=== PATIENT | male | born 1950 | race Hispanic/Latino ===

== ENCOUNTER → 2017-07-12 | Outpatient (CLI) | payer MEDICARE ==
[~2017-07-12] MED LIST: ATENOLOL-CHLOR1 EACH PO; ATENOLOL50 MG PO; OMEPRAZOLE40 MG PO
--- NOTE | 2017-07-12 10:28 | Diagnostic Imaging Report ---
PROCEDURE:X-RAY RIGHT SHOULDER, COMPLETE COMPARISON:None. INDICATIONS:PAIN IN RIGHT SHOULDER FINDINGS: There are no fractures, dislocations, lytic or blastic lesions. The bones are well-mineralized. The soft-tissues are unremarkable. CONCLUSION: No acute radiographic abnormality. Dictated by: Chaparro Stephen M.D. on 07/12/2017 at 10:28 Electronically approved by: Chaparro Stephen M.D. on 07/12/2017 at 10:28
== END ==
LOC: RAD 09:51
PROVIDERS: ATTEND Family Medicine
DX: M25.511 Pain in right shoulder (principal)

== ENCOUNTER → 2017-10-04 | Outpatient (CLI) | payer MEDICARE ==
[~2017-10-04] MED LIST changes: +IOPAMIDOL 370 MG/ML 200 ML INFUS..BTL INJ ONE; +SODIUM CHLORIDE 0.9% 100 ML ONE
[2017-10-04 12:10] LABS: BLOOD UREA NITROGEN 13 mg/dL (7-26); BUN/CREATININE RATIO 18 (6-25); CREATININE, SERUM 0.73 mg/dL (0.72-1.25); EST GLOMERULAR FILTRATION RATE > 60 ML/MIN (60-)
--- NOTE | 2017-10-04 15:20 | Diagnostic Imaging Report ---
EXAM: CTA Chest WITH contrast. DATE: 10/04/2017 11:50 AM INDICATION: COMPARISON: None TECHNIQUE: CT angiogram of the chest was obtained after the administration of IV contrast. Prospective gating was performed. Images reviewed in the axial, coronal, and sagittal planes. 3D reconstructions performed on off-line workstation. IV Contrast: 100 mL Isovue-370. Total DLP: 828 mGy*cm Est. Eff. Dose DLP x 0.015 x size factor mSv (CTDIvol has been reviewed and is below limits set by [facility]). FINDINGS: Lines and Tubes: None. Lower Neck: Please see same day CTA neck. Heart and Great Vessels: The pulmonary artery measure 38 mm. No central pulmonary embolus. Peripheral evaluation limited by motion artifact. Coronary arteries in adequately evaluated secondary to motion. No intracardiac filling defect is identified. Aortic Annulus: 33 mm. Sinus of Valsalva: 43 mm. Ascending Aorta at level of PA: 44 mm. Mid Arch: 33 mm. Proximal Descendin mm. Mid Descendin mm. Distal Descendin mm. Other: There is routine branching of the aortic arch with tortuosity and mild ectasia of the right brachycephalic artery measuring up to 17 mm. Lymph Nodes: Scattered mediastinal lymph nodes, not enlarged by size criteria. Lungs: No pneumothorax or pleural effusion. Trachea and central bronchi are unremarkable. Significant respiratory motion artifact limits pulmonary parenchymal evaluation. Scattered opacities in the mid and lower lungs statistically represent atelectasis with mild air trapping in the lung bases. Evaluation for pulmonary limited. Upper abdomen: Limited evaluation, no acute findings. Bones and Soft Tissues: Degenerative changes spine. IMPRESSION: 1. Moderate motion artifact degrades image quality, limiting evaluation. 2. Ectasia/mild aneurysmal dilatation of the aortic root and ascending aorta measuring 43 mm and 44 mm respectively. 3. Dilated pulmonary trunk at 38 mm suggesting pulmonary hypertension. 4. Tortuous ectatic right brachycephalic artery most prominent at the inferior/right aspect of the thyroid gland. 5. Limited evaluation pulmonary parenchyma as above. Signed by: Dr. Kirill Del Rosario MD on 10/04/2017 3:17 PM
--- NOTE | 2017-10-04 16:09 | Diagnostic Imaging Report ---
Exam: Cervical CTA History: Prominent pulsation in suprasternal notch. Comparison studies:None Technique: Axial images were obtained from the thoracic inlet. Multiplanar and MIP reconstructed images were created from the axial data. Additional multiplanar reformats of the left carotid artery with semi-automated stenosis calculation were performed on a separate workstation by the radiologist. Intravenous contrast: 100 cc of Omnipaque 300. If present, stenosis at the carotid bulbs is calculated utilizing the NASCET method which calculates the degree of stenosis with reference to the normal lumen of the carotid artery distal to the stenosis. Findings: Aortic arch: Patent, no filling defects. Great vessels: There is mild ectasia and tortuosity of the right brachycephalic trunk. Mild nonstenotic hard plaque at the origin of the right brachiocephalic trunk. Common carotid arteries and carotid bulbs: Patent bilaterally. No stenosis at the right cervical carotid bulb. Nonstenotic calcified atherosclerosis at the right ECA origin. Mild calcified and soft plaque at the proximal left bulb do not result in not result in hemodynamically significant stenosis (0% by NACET criteria). Internal carotid arteries: Patent, no abnormalities in the cervical segments. Mild nonstenotic calcified atherosclerosis in the intracranial paraophthalmic segments Vertebral arteries: Patent, no abnormalities. Cervical spine: Mildly degenerated C5-C6 and C6-C7 discs. Moderate bilateral C5-C6 and C6-C7 foraminal stenosis due to uncovertebral arthrosis. Incidental findings: Abnormal left globe with uveal-scleral calcification. A normal left lens is not identified and there are additional punctate calcifications within the anterior and inferior left globe. Finds may be related to previous traumatic, infectious or inflammatory insult. IMPRESSION: 1. Mildly ectatic and tortuous right brachycephalic trunk would account for suprasternal pulsation. 2. No (0%) stenosis at the right carotid bulb. 3. Mild calcified and hard plaque at the left cervical carotid bulb without significant stenosis (0% by NASCET criteria). 4. Abnormal left globe as described. Recommend correlation with ophthalmologic history and exam. Signed by: Dr. Med Hartley M.D. on 10/04/2017 4:05 PM
== END ==
LOC: CT 11:28
PROVIDERS: ATTEND Internal Medicine Cardiovascular Disease
DX: R94.8 Abnormal results of function studies of other organs and systems (principal); R07.9 Chest pain, unspecified; I70.90 Unspecified atherosclerosis
CPT/HCPCS: 36415; 70498; 71275; 82565; 84520; J7050; Q9967

== ENCOUNTER → 2017-11-24 | Outpatient (CLI) | payer MEDICARE ==
[~2017-11-24] MED LIST changes: -IOPAMIDOL 370 MG/ML 200 ML INFUS..BTL INJ ONE; -SODIUM CHLORIDE 0.9% 100 ML ONE
--- NOTE | 2017-11-24 16:10 | Diagnostic Imaging Report ---
PROCEDURE:US RETROPERITONEAL ( KIDNEY ). COMPARISON:None. INDICATIONS:ASYMPTOMATIC MICROSCOPIC HEMATURIA TECHNIQUE: Khan-scale and color sonographic images of the bilateral kidneys and bladder where obtained in transverse and longitudinal planes. FINDINGS: RIGHT KIDNEY: 12.3 cm, cortex 1.6 cm Cysts: None Solid masses: 0.6 x 0.6 x 0.9 cm echogenic lesion in the right midpole without shadowing Stones: None Hydronephrosis: None Echogenicity: Normal LEFT KIDNEY: 12.7 cm, cortex 2.1 cm Cysts: None Solid masses: None Stones: None Hydronephrosis: None Echogenicity: Normal Bladder: Unremarkable Prostate: The prostate measures 2.4 x 1.2 x 1.9 cm CONCLUSION: 1. 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 Recommend CT of the abdomen (renal cortical, within without contrast) for confirmation. 2. Otherwise normal renal ultrasound. Dictated by: Ulises Gamino M.D. on 11/24/2017 at 16:15 Electronically approved by: Ulises Gamino M.D. on 11/24/2017 at 16:15
== END ==
LOC: US 13:19
PROVIDERS: ATTEND Urology
DX: R31.21 Asymptomatic microscopic hematuria (principal)
CPT/HCPCS: 76770

== ENCOUNTER → 2018-06-11 | Outpatient (CLI) | payer OTHER ==
--- NOTE | 2018-06-11 10:24 | Diagnostic Imaging Report ---
EXAM: US ABDOMEN COMPLETE INDICATION: Abdominal pain. COMPARISON: None TECHNIQUE: Transverse and longitudinal hendrix scale and color doppler sonographic images of the upper abdomen were obtained. FINDINGS: LIVER 15 cm in the right midclavicular line. Increased echogenicity of the liver with normal contour, no masses. SPLEEN 9.5 cm in maximum diameter. Normal echogenicity, no masses. GALLBLADDER Mild gallbladder sludge. No gallbladder wall thickening, distension, stone, or pericholecystic fluid. Negative reported sonographic Koch's sign. BILE DUCTS No intra nor extra-hepatic biliary dilation. Common bile duct measures 0.3 cm PANCREAS: Visualized portions are normal. RIGHT KIDNEY: 11.2 cm Echogenicity: Normal Collecting System: No hydronephrosis Stones: None Cyst/Mass: None LEFT KIDNEY: 13.4 cm Echogenicity: Normal Collecting System: No hydronephrosis Stones: None Cyst/Mass: None VESSELS: Aorta: Visualized portions are within normal size limits Inferior Vena Cava: Visualized portions are normal Main Portal Vein: 0.9 cm, normal size with hepatopetal flow. FREE FLUID: None IMPRESSION: Hepatic steatosis. Mild gallbladder sludge without sonographic evidence of cholecystitis. Signed by: Dr. Erlin Carr MD on 06/11/2018 10:20 AM
== END ==
LOC: US 08:54
PROVIDERS: ATTEND Family Medicine
DX: R10.84 Generalized abdominal pain (principal)
CPT/HCPCS: 76700

== ENCOUNTER 2018-07-05 16:53 | Observation (INO) | payer MEDICARE, OTHER ==
[~2018-07-05] VITALS: Ht 182.9 cm; Wt 103.4 kg
--- OUTSIDE RECORDS SUMMARY | 2018-07-05 16:56 | XMS REPORT ---
Author Author [facility] Address Unknown Phone Unavailable Care Team Providers Care Senior Software Architect Name Role Phone TORSTEN HARPER Unavailable Unavailable JUHI NICHOLS Unavailable Unavailable Davonte OVALLE Unavailable Unavailable Problems This patient has no known problems. Allergies, Adverse Reactions, Alerts This patient has no known allergies or adverse reactions. Medications This patient has no known medications. Results Test Description Test Time Test Comments Text Results Atomic Results Result Comments US ABDOMEN COMPLETE 2018-06-11 10:10:00 [place] [address] Patient Name: RORY MEDINA MR #: [id number] : 1950 Age/Sex: 68/M Req #: [id number] Adm Physician: Ordered by: TORSTEN HARPER MD Report #: [id number] Location: Room/Bed: Procedure: [id number] US/US ABDOMEN COMPLETE Exam Date: 06/11/18 Exam Time: 0930 REPORT STATUS: Signed EXAM: US ABDOMEN COMPLETE INDICATION: Abdominal pain. COMPARISON: None TECHNIQUE: Transverse and longitudinal hendrix scale and color doppler sonographic images of the upper abdomen were obtained. FINDINGS: LIVER 15 cm in the right midclavicular line. Increased echogenicity of the liver with normal contour, no masses. SPLEEN 9.5 cm in maximum diameter. Normal echogenicity, no masses. GALLBLADDER Mild gallbladder sludge. No gallbladder wall thickening, distension, stone, or pericholecystic fluid. Negative reported sonographic Koch's sign. BILE DUCTS No intra nor extra-hepatic biliary dilation. Common bile duct measures 0.3 cm PANCREAS: Visualized portions are normal. RIGHT KIDNEY: 11.2 cm Echogenicity: Normal Collecting System: No hydronephrosis Stones: None Cyst/Mass: None LEFT KIDNEY: 13.4 cm Echogenicity: Normal Collecting System: No hydronephrosis Stones: None Cyst/Mass: None VESSELS: Aorta: Visualized portions are within normal size limits Inferior Vena Cava: Visualized portions are normal Main Portal Vein: 0.9 cm, normal size with hepatopetal flow. FREE FLUID: None IMPRESSION: Hepatic steatosis. Mild gallbladder sludge without sonographic evidence of cholecystitis. Signed by: Dr. Sanna Almonte MD on 06/11/2018 10:20 AM Dictated By: SANNA ALMONTE MD 1020 Transcribed By: LUIS on 06/11/18 1020 COPY TO: TORSTEN HARPER MD US RENAL RETROPERITONEAL COMP 2017-11-24 16:15:00 [place] [address] Patient Name: RORY MEDINA MR #: [id number] : 1950 Age/Sex: 67/M Req #: [id number] Adm Physician: Ordered by: JUHI NICHOLS MD Report #: [id number] Location: Room/Bed: Procedure: [id number] US/US RENAL RETROPERITONEAL COMP Exam Date: Exam Time: REPORT STATUS: Signed PROCEDURE: US RETROPERITONEAL ( KIDNEY ). COMPARISON: None. INDICATIONS: ASYMPTOMATIC MICROSCOPIC HEMATURIA TECHNIQUE: Khan-scale and color sonographic images of the bilateral kidneys and bladder where obtained in transverse and longitudinal planes. FINDINGS: RIGHT KIDNEY: 12.3 cm, cortex 1.6 cm Cysts: None Solid masses: 0.6 x 0.6 x 0.9 cm echogenic lesion in the right midpole without shadowing Stones: None Hydronephrosis: None Echogenicity: Normal LEFT KIDNEY: 12.7 cm, cortex 2.1 cm Cysts: None Solid masses: None Stones: None Hydronephrosis: None Echogenicity: Normal Bladder: Unremarkable Prostate: The prostate measures 2.4 x 1.2 x 1.9 cm CONCLUSION: 1. 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 Recommend CT of the abdomen (renal cortical, within without contrast) for confirmation. 2. Otherwise normal renal ultrasound. Dictated by: Rito Gamino M.D. on 11/24/2017 at 16:15 Electronically approved by: Rito Gamino M.D. on 11/24/2017 at 16:15 Dictated By: RITO GAMINO MD 161 Transcribed By: ANMOL on 11/24/17 1615 COPY TO: JUHI NICHOLS MD CTA CHEST [place] [address] Patient Name: RORY MEDINA MR #: [id number] : 1950 Age/Sex: 67/M Req #: [id number] Adm Physician: Ordered by: FILIPE OVALLE MD Report #: [id number] Location: CT Room/Bed: Procedure: [id number] CT/CTA CHEST Exam Date: 10/04/17 Exam Time: 1240 REPORT STATUS: Signed EXAM: CTA Chest WITH contrast. DATE: 10/04/2017 11:50 AM INDICATION: COMPARISON: None TECHNIQUE: CT angiogram of the chest was obtained after the administration of IV contrast. Prospective gating was performed. Images reviewed in the axial, coronal, and sagittal planes. 3D reconstructions performed on off-line workstation. IV Contrast: 100 mL Isovue-370. Total DLP: 828 mGy*cm Est. Eff. Dose DLP x 0.015 x size factor mSv (CTDIvol has been reviewed and is below limits set [facility] FINDINGS: Lines and Tubes: None. Lower Neck: Please see same day CTA neck. Heart and Great Vessels: The pulmonary artery measure 38 mm. No central pulmonary embolus. Peripheral evaluation limited by motion artifact. Coronary arteries in adequately evaluated secondary to motion. No intracardiac filling defect is identified. Aortic Annulus: 33 mm. Sinus of Valsalva: 43 mm. Ascending Aorta at level of PA: 44 mm. Mid Arch: 33 mm. Proximal Descendin mm. Mid Descendin mm. Distal Descendin mm. Other: There is routine branching of the aortic arch with tortuosity and mild ectasia of the right brachycephalic artery measuring up to 17 mm. Lymph Nodes: Scattered mediastinal lymph nodes, not enlarged by size criteria. Lungs: No pneumothorax or pleural effusion. Trachea and central bronchi are unremarkable. Significant respiratory motion artifact limits pulmonary parenchymal evaluation. Scattered opacities in the mid and lower lungs statistically represent atelectasis with mild air trapping in the lung bases. Evaluation for pulmonary limited. Upper abdomen: Limited evaluation, no acute findings. Bones and Soft Tissues: Degenerative changes spine. IMPRESSION: 1. Moderate motion artifact degrades image quality, limiting evaluation. 2. Ectasia/mild aneurysmal dilatation of the aortic root and ascending aorta measuring 43 mm and 44 mm respectively. 3. Dilated pulmonary trunk at 38 mm suggesting pulmonary hypertension. 4. Tortuous ectatic right brachycephalic artery most prominent at the inferior/right aspect of the thyroid gland. 5. Limited evaluation pulmonary parenchyma as above. Signed by: Dr. Kirill Del Rosario MD on 10/04/2017 3:17 PM Dictated By: KIRILL DEL ROSARIO MD [id number] Transcribed By: LUIS on 10/04/17 9397 COPY TO: FILIPE OVALLE MD CTA NECK [facility] [address] [place] [address] Patient Name: RORY MEDINA MR #: [id number] : 1950 Age/Sex: 67/M Req #: [id number] Adm Physician: Ordered by: FILIPE OVALLE MD Report #: [id number] Location: CT Room/Bed: Procedure: [id number] CT/CTA NECK Exam Date: 10/04/17 Exam Time: 1240 REPORT STATUS: Signed Exam: Cervical CTA History: Prominent pulsation in suprasternal notch. Comparison studies:None Technique: Axial images were obtained from the thoracic inlet. Multiplanar and MIP reconstructed images were created from the axial data. Additional multiplanar reformats of the left carotid artery with semi-automated stenosis calculation were performed on a separate workstation by the radiologist. Intravenous contrast: 100 cc of Omnipaque 300. If present, stenosis at the carotid bulbs is calculated utilizing the NASCET method which calculates the degree of stenosis with reference to the normal lumen of the carotid artery distal to the stenosis. Findings: Aortic arch: Patent, no filling defects. Great vessels: There is mild ectasia and tortuosity of the right brachycephalic trunk. Mild nonstenotic hard plaque at the origin of the right brachiocephalic trunk. Common carotid arteries and carotid bulbs: Patent bilaterally. No stenosis at the right cervical carotid bulb. Nonstenotic calcified atherosclerosis at the right ECA origin. Mild calcified and soft plaque at the proximal left bulb do not result in not result in hemodynamically significant stenosis (0% by NACET criteria). Internal carotid arteries: Patent, no abnormalities in the cervical segments. Mild nonstenotic calcified atherosclerosis in the intracranial paraophthalmic segments Vertebral arteries: Patent, no abnormalities. Cervical spine: Mildly degenerated C5-C6 and C6-C7 discs. Moderate bilateral C5-C6 and C6-C7 foraminal stenosis due to uncovertebral arthrosis. Incidental findings: Abnormal left globe with uveal-scleral calcification. A normal left lens is not identified and there are additional punctate calcifications within the anterior and inferior left globe. Finds may be related to previous traumatic, infectious or inflammatory insult. IMPRESSION: 1. Mildly ectatic and tortuous right brachycephalic trunk would account for suprasternal pulsation. 2. No (0%) stenosis at the right carotid bulb. 3. Mild calcified and hard plaque at the left cervical carotid bulb without significant stenosis (0% by NASCET criteria). 4. Abnormal left globe as described. Recommend correlation with ophthalmologic history and exam. Signed by: Dr. Markel Hartley M.D. on 10/04/2017 4:05 PM Dictated By: MARKEL HARTLEY MD 1609 Transcribed By: LUIS on 10/04/17 1605 COPY TO: FILIPE OVALLE MD SHOULDER RIGHT COMPLETE [place] [address] Patient Name: RORY MEDINA MR #: [id number] : 1950 Age/Sex: 67/M Req #: [id number] Adm Physician: Ordered by: TORSTEN HARPER MD Report #: [id number] Location: [facility] Room/Bed: Procedure: [id number] DX/SHOULDER RIGHT COMPLETE Exam Date: 07/12/17 Exam Time: 0950 REPORT STATUS: Signed PROCEDURE: X-RAY RIGHT SHOULDER, COMPLETE COMPARISON: None. INDICATIONS: PAIN IN RIGHT SHOULDER FINDINGS: There are no fractures, dislocations, lytic or blastic lesions. The bones are well- mineralized. The soft-tissues are unremarkable. CONCLUSION: No acute radiographic abnormality. Dictated by: Daphne Pantoja M.D. on 07/12/2017 at 10:28 Electronically approved by: Daphne Pantoja M.D. on 07/12/2017 at 10:28 Dictated By: DAPHNE PANTOJA MD 1028 Transcribed By: ANMOL on 07/12/17 1028 COPY TO: TORSTEN HARPER MD
--- NOTE | 2018-07-05 18:29 | Diagnostic Imaging Report ---
History:Disoriented, lethargic, confused, headache Comparison studies: None Technique: Axial images were obtained from the skull base to the vertex. Coronal and sagittal images reconstructed from the axial data. Dose modulation, iterative reconstruction, and/or weight based adjustment of the mA/kV was utilized to reduce the radiation dose to as low as reasonably achievable. Intravenous contrast: None Findings: Scalp/skull: No abnormalities. Extra-axial spaces: No masses. No fluid collections. Brain sulci: Mildly prominent. Ventricles: Mild compensatory dilatation. No hydrocephalus. Parenchyma: Subtle hypodensities in the supratentorial white matter are small vessel ischemic changes. An age-indeterminate, 1 cm subacute or early chronic lacunar insult is centered in the anterior limb of the right internal capsule. No masses, hemorrhage, acute or chronic cortical vascular insults. Sellar/suprasellar region: No abnormalities. Craniocervical junction: Patent foramen magnum. No Chiari one malformation. Incidental findings: Subtle atherosclerotic calcifications in the carotid siphons and vertebral arteries. Curvilinear calcification in the left sclera, absent lens and punctate calcifications in the anterior chamber. Impression: No acute abnormalities. Chronic findings: 1. Mild generalized volume loss. 2. Mild supratentorial white matter small vessel ischemic changes. 3. Age-indeterminate subacute or chronic lacunar insult in the anterior limb of the right internal capsule. Signed by: Dr. Jah Aguirre M.D. on 07/05/2018 6:26 PM
[2018-07-05 19:20] LABS: BASOPHILS # (AUTO) 0.1 (0.0-0.1); BASOPHILS % 0.8 % (0.0-1.0); EOSINOPHILS # (AUTO) 0.3 (0.0-0.4); EOSINOPHILS % 3.6 % (0.0-6.0); HEMATOCRIT 40.4 % (38.2-49.6); HEMOGLOBIN 13.6 g/dL (14.0-18.0); LYMPHOCYTES # (AUTO) 2.8 (1.0-3.2); LYMPHOCYTES % 39.2 % (18.0-39.1); MEAN CORPUSCULAR HEMOGLOBIN 30.8 pg (28-32); MEAN CORPUSCULAR HGB CONC 33.7 g/dL (31-35); MEAN CORPUSCULAR VOLUME 91.6 fL (81-99); MONOCYTES # (AUTO) 0.7 (0.2-0.8); MONOCYTES % 9.9 % (4.4-11.3); NEUTROPHILS # (AUTO) 3.4 (2.1-6.9); NEUTROPHILS % 46.2 % (38.7-80.0); PLATELET COUNT 175 x10e3/uL (140-360); RED BLOOD COUNT 4.41 x10e6/uL (4.3-5.7); RED CELL DISTRIBUTION WIDTH 14.3 % (11.7-14.4)
--- NOTE | 2018-07-05 19:29 | Diagnostic Imaging Report ---
EXAMINATION: CHEST SINGLE (PORTABLE) INDICATION: ^CHEST PAIN ^[id number] ^1850 ^Y COMPARISON: Chest radiograph 12/18/2015 FINDINGS: AP view TUBES and LINES: None. LUNGS: Lungs are well inflated. Bilateral pulmonary edema. No lobar consolidations. PLEURA: No pleural effusion or pneumothorax. HEART AND MEDIASTINUM: Moderate enlargement of the cardiac silhouette. BONES AND SOFT TISSUES: No acute osseous lesion. Soft tissues are unremarkable. UPPER ABDOMEN: No free air under the diaphragm. IMPRESSION: Cardiomegaly with associated bilateral pulmonary edema. Signed by: Dr. Amparo Reeves M.D. on 07/05/2018 7:25 PM
[2018-07-05 19:33] LABS: INR 0.86; PROTHROMBIN TIME 12.5 seconds (11.9-14.5)
[2018-07-05 19:34] LABS: PARTIAL THROMBOPLASTIN TIME 29.7 seconds (23.8-35.5)
[2018-07-05 19:44] LABS: ALANINE AMINOTRANSFERASE 21 IU/L (0-55); ALBUMIN 3.9 g/dL (3.5-5.0); ALBUMIN/GLOBULIN RATIO 1.2 (0.8-2.0); ALKALINE PHOSPHATASE 54 IU/L (40-150); ANION GAP 10.8 mmol/L (8-16); BLOOD UREA NITROGEN 12 mg/dL (7-26); BUN/CREATININE RATIO 16 (6-25); CALCIUM 9.7 mg/dL (8.4-10.2); CARBON DIOXIDE 31 mmol/L (22-29); CHLORIDE 102 mmol/L (98-107); CREATINE KINASE 97 IU/L (30-200); CREATININE, SERUM 0.76 mg/dL (0.72-1.25); EST GLOMERULAR FILTRATION RATE > 60 ML/MIN (60-); GLUCOSE 86 mg/dL (74-118); POTASSIUM 3.8 mmol/L (3.5-5.1); SODIUM 140 mmol/L (136-145)
[2018-07-05 20:56] LABS: CLARITY,URINE CLEAR (CLEAR); COLOR,URINE YELLOW (YELLOW)
[2018-07-05 20:57] LABS: BILIRUBIN,URINE NEGATIVE (NEGATIVE); KETONES,URINE NEGATIVE (NEGATIVE); LEUKOCYTE ESTERASE ,URINE NEGATIVE (NEGATIVE); NITRITE,URINE NEGATIVE (NEGATIVE); PROTEIN,URINE DIPSTICK NEGATIVE (NEGATIVE); URINE UROBILINOGEN 0.2 mg/dL (0.2 - 1)
[2018-07-05] MEDS ORDERED: SODIUM CHLORIDE 0.9% 1000ML 1,000 ML IV SCH (21:25)
[2018-07-05] MEDS ORDERED: ONDANSETRON HCL INJ 2MG/ML 2ML 2 MG/ML VIAL IV PRN (21:30)
[2018-07-05] MEDS ORDERED: ASPIRIN 81 MG CHEW TAB PO ONE (21:30)
[2018-07-05] MEDS ORDERED: HYDRALAZINE HCL 20 MG/ML VIAL IV PRN (22:00)
[2018-07-05] MEDS ORDERED: PEPCID40 MG PO (22:32)
[2018-07-05] MEDS ORDERED: METOPROLOL SUCC25 MG PO (22:32)
[2018-07-05] MEDS ORDERED: ATORVASTATIN CA40 MG PO (22:32)
[2018-07-05] MEDS ORDERED: TRIAMTERENE-HCTZ1 EA PO (22:34)
[2018-07-05 23:29] VITALS: BP 187/77
[2018-07-06] VITALS (8 sets, daily range): BP systolic 117–194; BP diastolic 57–80
[2018-07-06 05:31] LABS: BASOPHILS # (AUTO) 0.1 (0.0-0.1); BASOPHILS % 0.8 % (0.0-1.0); EOSINOPHILS # (AUTO) 0.3 (0.0-0.4); HEMATOCRIT 39.4 % (38.2-49.6); HEMOGLOBIN 13.1 g/dL (14.0-18.0); LYMPHOCYTES # (AUTO) 2.5 (1.0-3.2); LYMPHOCYTES % 30.6 % (18.0-39.1); MEAN CORPUSCULAR HEMOGLOBIN 30.5 pg (28-32); MEAN CORPUSCULAR HGB CONC 33.2 g/dL (31-35); MEAN CORPUSCULAR VOLUME 91.6 fL (81-99); MONOCYTES # (AUTO) 0.8 (0.2-0.8); NEUTROPHILS # (AUTO) 4.6 (2.1-6.9); NEUTROPHILS % 55.4 % (38.7-80.0); PLATELET COUNT 153 x10e3/uL (140-360); RED CELL DISTRIBUTION WIDTH 14.1 % (11.7-14.4)
[2018-07-06 05:49] LABS: CREATINE KINASE 78 IU/L (30-200)
--- NOTE | 2018-07-06 06:01 | Diagnostic Imaging Report ---
EXAMINATION: CHEST SINGLE (PORTABLE) COMPARISON: Chest x-ray 07/05/2018 INDICATION: Cardiomegaly ^CARDIOMEGLEY DISCUSSION: Frontal view of the chest obtained at 0536 hours. HEART AND MEDIASTINUM: Stable cardiomegaly, mild aortic ectasia. LINES: None. LUNGS: Pulmonary vascular markings are prominent and similar. Mild interstitial and alveolar edema. PLEURA: No pleural effusion or pneumothorax. BONES AND SOFT TISSUES: No focal osseous lesion. The soft tissues are normal. IMPRESSION: Stable vascular congestion and edema. Stable cardiomegaly. Signed by: Dr. Heladio Galdamez MD on 07/06/2018 5:58 AM
[2018-07-06 06:48] LABS: ANION GAP 10.5 mmol/L (8-16); BLOOD UREA NITROGEN 14 mg/dL (7-26); BUN/CREATININE RATIO 20 (6-25); CALCIUM 9.1 mg/dL (8.4-10.2); CARBON DIOXIDE 27 mmol/L (22-29); CHLORIDE 105 mmol/L (98-107); CREATININE, SERUM 0.71 mg/dL (0.72-1.25); EST GLOMERULAR FILTRATION RATE > 60 ML/MIN (60-); GLUCOSE 96 mg/dL (74-118); POTASSIUM 3.5 mmol/L (3.5-5.1); SODIUM 139 mmol/L (136-145)
--- NOTE | 2018-07-06 09:20 | NUR ---
Pt received resting in bed with family at bedside. Alert and oriented x4 but Persian speaking. Oriented to staff and surroundings, encouraged to press call douglass if help needed. Emotional support given. Fall precautions maintained. Will monitor
[2018-07-06 09:56] LABS: CREATINE KINASE MB < 1.00 ng/mL (0-4.3)
[2018-07-06 14:10] LABS: CREATINE KINASE MB 0.6 ng/mL (0-5.0)
--- NOTE | 2018-07-06 14:13 | NUR ---
SOCIAL WORK INITIAL ASSESSMENT Resource Coordinator to bedside to discuss plan of care with patient/family. CM/SW role and care transitions discussed. Anticipated discharge plan discussed along with duration of care. CM/SW discussed patients right to make decisions in care. CM/SW work hours given. Patient lives: IN [facility]BI[facility] HOME Admit/Transfer: VIA ED POA/Emergency contact: DAUGHTER ADAM TELLO [phone] Current/Previous Home Health: NONE PCP/Follow-up Care: LEROY OR ARELY Current/Previous DME: NONE Other Services: NONE Employment Status: RETIRED Areas of Concerns: NONE Referral Needs: NONE Education Needs: NONE IMM/QUEZADA given and signed (if applicable): NA Goal for discharge: RETURN HOME CM/SW left business card at the bedside with contact information. Name and number was also written on the patients whiteboard. Patient verbalized understanding of discussion. CM will follow-up with ongoing discharge and transition of care needs.
[2018-07-06] MEDS ORDERED: GADOBENATE DIMEGLUMINE 1 ML IV ONE (16:06)
[2018-07-06] MEDS ORDERED: SODIUM CHLORIDE 0.9% 50ML 50 ML ONE (16:06)
[2018-07-06] MEDS: HYDRALAZINE HCL 10 MG TAB PO SCH ×2 (17:46→21:42)
--- NOTE | 2018-07-06 18:13 | Diagnostic Imaging Report ---
ADDENDUM #1 The cervical MRA was performed with contrast, 20mL Multihance. The correct brain MRI impression should read as follows: Acute, nonhemorrhagic right internal capsule infarct centered in the genu with some extension to the globus pallidus. The cervical and intracranial MRA impression: No cervical or intracranial arterial stenosis or occlusion or vascular malformation. The images and neuroradiology fellow, Dr Dandre Harrison's report were reviewed with edits are as above by Dr. Shaila Wilhelm, neuroradiology faculty, on 07/06/2018 at 2010 hours. Signed by: Dr. Shaila Wilhelm M.D. on 07/06/2018 8:10 PM ORIGINAL REPORT Exam: Brain MRI, intracranial, and cervical MRA without contrast History: 68-year-old male with abnormal speech and weakness Comparison studies: Head CT dated 07/05/2018 and head/neck CTA on 10/04/2017 Technique: Pre-contrast: Sagittal T2; axial T1-IR, MPGR, DWI, T2 FLAIR. Post-contrast: axial and coronal T1. 2-D [id number] MRA . Intravenous contrast: None Findings: Brain: Scalp: No abnormal signal. No masses. Bone marrow: Normal in signal intensity. Extra-axial: No masses or fluid collections. Brain sulci: Mildly prominent . Ventricles: Normal in size . No hydrocephalus. Parenchyma: Focal area of restricted diffusion centered in the genu of the right internal capsule with a normal extension into the adjacent globus pallidus. There is mild underlying edema with persistent low ADC values. Minimal susceptibility on GRE may represent physiologic calcification, as in the contralateral globus pallidus versus trace microhemorrhage. Chronic lacunar infarcts involving the right basal ganglia and caudate head. Suprasellar region: No abnormalities. Craniocervical junction: No abnormalities. Patent foramen magnum. No Chiari one malformation. Other: Dysmorphic appearance of the left lobe, unchanged. Cervical MRA: Carotid arteries: Patent, no significant abnormality. Vertebral arteries: Patent, no significant abnormality. Intracranial MRA: Internal carotid arteries: Patent, no abnormality. Vertebrobasilar circulation: Patent, no abnormality. Anatomical variants: Acom: Normal Pcom: Normal Vertebral arteries:Codominant IMPRESSION: Brain MRI: Subacute right internal capsule infarct centered in the genu with some extension to the globus pallidus. Chronic findings: 1. Multiple chronic right basal ganglia and caudate head infarcts. 2. Stable dysmorphic left globe Cervical MRA: Normal without significant stenosis. Intracranial MRA: Normal without significant stenosis. This is a preliminary report was provided by the neuroradiology fellow. Attending over read to follow. Signed by: Dandre Harrison MD on 07/06/2018 6:19 PM
--- NOTE | 2018-07-06 19:00 | NUR ---
received report from day nurse. patient is resting comfortably in bed. bed is in lowest position and call douglass is within reach. will continue to monitor patient.
[2018-07-06] MEDS ORDERED: ATORVASTATIN 40 MG TAB PO SCH (21:00)
[2018-07-06] MEDS ORDERED: NON-FORMULARY MEDICATION (Atorvastatin Calcium 40 MG) PO SCH (21:00)
[2018-07-07] VITALS: BP_SYST 139; BP_SYST 140; BP_DIAS 65
--- NOTE | 2018-07-07 07:06 | NUR ---
report given to day nurse. patient is resting in bed. bed is in lowest position and call douglass is within reach. will continue to monitor patient.
[2018-07-07 08:01] VITALS: BP 173/77
[2018-07-07] MEDS ORDERED: PANTOPRAZOLE SOD 40 MG TABEC PO SCH (09:00)
[2018-07-07] MEDS ORDERED: TRIAMTERENE/HCTZ 37.5-25 MG TAB PO SCH (09:00)
[2018-07-07] MEDS: HYDRALAZINE HCL 10 MG TAB PO SCH ×2 (10:13→15:17)
[2018-07-07 10:31] VITALS: BP 173/77
[2018-07-07 11:47] VITALS: BP 135/62
--- NOTE | 2018-07-07 14:41 | NUR ---
CALLED [facility] REGARDING DISCHARGE, DR. CARPIO SAID, "I WILL SEE HIM IN ABOUT AN HOUR, WAIT UNTIL I SEE HIM."
--- NOTE | 2018-07-07 14:47 | NUR ---
CALLED [phone],PRESSED 2# INSTRUCTED FOR VOICE MAIL FOR ELVIN HENRY, LEFT MESSAGE WITH CALLBACK NUMBER TO CALL BACK IF OKAY TO DISCHARGE PATIENT.
[2018-07-07 15:18] VITALS: BP 149/68
--- NOTE | 2018-07-08 01:55 | Consultation ---
DATE OF CONSULTATION: 07/07/2018 Cardiology Consultation CONSULTING PHYSICIAN: Leon Hughes MD, Interventional Cardiology REASON FOR CONSULTATION: Stroke and bradycardia. HISTORY OF PRESENT ILLNESS: Mr. Taylor is a 68-year-old pleasant man with hypertension, dyslipidemia, who presents via the Emergency Department with complaints of confusion as noted by family members. He was noted to have on an evaluation by imaging studies subacute CVA of internal capsule and lenticular nuclear, and other old stroke areas. His confusion has resolved. He is currently asymptomatic. When initially arrived, his heart rate was in the 30s to 40s, sinus bradycardia in the setting of beta asa, which has been discontinued since his heart rate has improved to the 50s to 60s today. He has no chest pain or shortness of breath. Denies any lightheadedness or syncope. He denies any shortness of breath. REVIEW OF SYSTEMS: A 12 systems review is negative except for as noted above. PAST MEDICAL HISTORY: As per HPI. SOCIAL HISTORY: Negative x3. FAMILY HISTORY: Noncontributory. PHYSICAL EXAMINATION: VITAL SIGNS: Temperature 98.1, heart rate 60, blood pressure 149/68, O2 saturation 94%. GENERAL: No acute distress. Alert and active. NECK: No JVD. CHEST: Clear to auscultation. CARDIOVASCULAR: Regular rate and rhythm. Normal S1 and S2. No S3. No S4. No murmurs. No rubs. ABDOMEN: Soft, nontender, nondistended. EXTREMITIES: No cyanosis, clubbing, or edema. LABORATORY DATA: Studies reviewed, including MRI and MRA. MRI findings as described above. MRA with no evidence of intracerebral or neck significant arterial stenosis by MRA. Studies reviewed, creatinine 0.7, potassium 3.5, bicarbonate 27, sodium 139, chloride 105, BUN 14, glucose 96, white blood cells 8.2, hemoglobin 13.1, platelets 153. INR is 3.8, AST 23, ALT 21, total bilirubin 0.4. EKG with marked sinus bradycardia, nonspecific repolarization abnormalities. CARDIOVASCULAR MEDICATIONS: Reviewed, on triamterene/hydrochlorothiazide 1 capsule daily, hydralazine 25 mg t.i.d., atorvastatin 40 mg at bedtime. ASSESSMENT: 1. Subacute stroke and previous old strokes, noted on MRI. 2. Confusion, likely related to the above. 3. Hypertension. 4. Dyslipidemia. 5. Sinus bradycardia, suspect related to beta asa use. RECOMMENDATIONS: 1. Start clopidogrel 75 mg daily in setting of subacute stroke. 2. Uptitrate statin to 80 mg atorvastatin. 3. Gradual titration of antihypertensives, avoiding chronotropic negative medications for now. 4. Outpatient video presentation operator to exclude tachybrady syndrome with a component of atrial fibrillation or atrial flutter, however, stroke pattern most consistent with hypertensive etiology. Awaiting Neurology evaluation to confirm these concerns. 5. Left ventricular hypertrophy and preserved left ventricular systolic function on echocardiogram with no significant valvular abnormalities. Discussed findings with the patient. MD LANIE Brown/MODRip /[id number] MTDD
--- NOTE | 2018-07-08 02:46 | Discharge Summary ---
HISTORY: The patient is 68-year-old male with past medical history only positive for hypertension. Apparently, he came here because of weakness. Incidentally, he was found to have an evidence of an old subacute right CVA with no evidence of any neurologic deficit. He was seen by Dr. Hess, Neurology. MRI on the [place] and the carotid arteries did not show any stenosis. Essentially, the cervical MRI showed patent, no significant abnormality. Vertebral artery is patent, no significant abnormality. Intracranial MRI shows it was patent. No significant abnormality. Vertebrobasilar circulation is also patent. So, . So, the patient and family want to go home today. If okay with Dr. Hess of Neurology and Dr. Hughes of Cardiology, the patient can go home today. I told the patient he needs to start taking at least a baby aspirin 81 mg daily plus Lipitor 40 mg daily. He is also on hydralazine 10 mg three times a day. So, the patient is going to go home today if okay with the consultants. PHYSICAL EXAMINATION: HEART: Showed regular rhythm. No murmur or added sound. LUNGS: Clear bilaterally. ABDOMEN: Soft. EXTREMITIES: Show no evidence of cyanosis, edema, or trauma. EKG showed normal sinus bradycardia when he came, but no evidence of any ST-segment elevation or depression or any significant arrhythmia. FINAL IMPRESSION: 1. Episode of weakness. 2. Old subacute right ischemic cerebrovascular accident. 3. Uncontrolled hypertension. 4. Obesity. PLAN OF TREATMENT: The patient is going to be discharged on aspirin 81 mg daily and hydralazine 10 mg three times a day. Follow on triamterene one tablet daily. The patient is going to follow up with Dr. Hess and Dr. Hughes in a week. Discharge only if okay with Dr. Hughes, bowling ball marker and Dr. Hess, neurologist. The patient is able to walk by himself with no problem. MD SRINIVASA Talbert/ALEA /[id number]
== END 2018-07-07 18:41 | disposition home or self-care (01) ==
LOC: ER 16:53 → ERHOLD 21:39 → IMCU 22:59
DX: R53.1 Weakness (principal); I10 Essential (primary) hypertension; Z86.73 Personal history of transient ischemic attack (TIA), and cerebral infarction without residual deficits; E78.5 Hyperlipidemia, unspecified; R00.1 Bradycardia, unspecified; E66.9 Obesity, unspecified; Z87.891 Personal history of nicotine dependence; Z83.3 Family history of diabetes mellitus; Z82.49 Family history of ischemic heart disease and other diseases of the circulatory system; Z68.30 Body mass index [BMI] 30.0-30.9, adult
CPT/HCPCS: 36415 ×2; 70450; 70544; 70549; 70551; 71045 ×2; 80048; 80053; 81001; 82550 ×2; 82553 ×2; 83880; 84484 ×2; 85025 ×2; 85610; 85730; 93005 ×2; 93306; 97139; 99284; A9577; G0378 ×3; J0360; S0164

== ENCOUNTER 2018-07-10 18:32 | Observation (INO) | payer MEDICARE, OTHER ==
[~2018-07-10] VITALS: Ht 182.9 cm; Wt 102.5 kg
[~2018-07-10 18:32] MED LIST changes: +ATORVASTATIN CA40 MG PO; +METOPROLOL SUCC25 MG PO; +PEPCID40 MG PO; +TRIAMTERENE-HCTZ1 EA PO
--- NOTE | 2018-07-10 19:42 | Diagnostic Imaging Report ---
EXAMINATION: CHEST SINGLE (PORTABLE) INDICATION: ^NEURO CHANGES COMPARISON: Chest x-ray 07/06/2018 FINDINGS: AP view TUBES and LINES: None. LUNGS: Lungs are well inflated. There are bibasilar atelectasis. There is perihilar interstitial opacities, consistent with interstitial edema. PLEURA: No pleural effusion or pneumothorax. HEART AND MEDIASTINUM: Cardiac size is moderately enlarged. There are atherosclerotic calcifications within the aorta. BONES AND SOFT TISSUES: No acute osseous lesion. Soft tissues are unremarkable. UPPER ABDOMEN: No free air under the diaphragm. IMPRESSION: Worsening interstitial edema. Signed by: Dr. Wicho Velasquez M.D. on 07/10/2018 7:38 PM
--- NOTE | 2018-07-10 19:47 | Diagnostic Imaging Report ---
EXAMINATION: Head CT without contrast. HISTORY:Headache, weakness, history of recent CVA. COMPARISON:MRI brain from 07/06/[address] head from 07/05/2018. TECHNIQUE: Multidetector axial images were obtained from the foramen magnum to the vertex without contrast. The images were reconstructed using brain and bone algorithms. Thin section brain images were reformatted into coronal and sagittal planes. Dose modulation, iterative reconstruction, and/or weight based adjustment of the mA/kV was utilized to reduce the radiation dose to as low as reasonably achievable. Intravenous contrast: None IMAGE QUALITY: Acceptable. FINDINGS: Skull/scalp: No lytic or blastic. lesions. No surgical changes. Parenchyma: Focal hypodensity centered in the general/anterior limb of right internal capsule that extends to lateral margin of right caudate head and anterior aspect of right lentiform nucleus represents evolving subacute vascular insult. No discrete hemorrhagic transformation. Nonspecific bilateral frontoparietal patchy white matter hypodensity are likely related to small vessel ischemic changes. No acute hemorrhage, mass or acute major vascular territorial infarct. Arteries: No density suggestive of thrombosis. Mild atherosclerotic calcification in bilateral carotid siphon. Dural sinuses: No abnormal density suggestive of thrombosis. Ventricles: No hydrocephalus or displacement. Extra-axial spaces: No abnormal density. Brain volume: Normal for age. Craniocervical junction: No mass, Chiari malformation, or basilar invagination. Sella: No mass. Paranasal/mastoid sinuses: Imaged portions unremarkable. IMPRESSION: 1. Evolving subacute vascular insult in right striato-capsular region. No acute hemorrhage. 2. Mild supratentorial white matter microvascular ischemic changes. Signed by: Dr. Jossy Humphrey M.D. on 07/10/2018 7:44 PM
[2018-07-10 21:25] LABS: BASOPHILS # (AUTO) 0.1 (0.0-0.1); BASOPHILS % 0.4 % (0.0-1.0); EOSINOPHILS # (AUTO) 0.1 (0.0-0.4); EOSINOPHILS % 0.5 % (0.0-6.0); HEMATOCRIT 43.4 % (38.2-49.6); HEMOGLOBIN 14.5 g/dL (14.0-18.0); LYMPHOCYTES % 13.4 % (18.0-39.1); MEAN CORPUSCULAR HEMOGLOBIN 30.4 pg (28-32); MEAN CORPUSCULAR HGB CONC 33.4 g/dL (31-35); MONOCYTES # (AUTO) 1.6 (0.2-0.8); MONOCYTES % 10.5 % (4.4-11.3); NEUTROPHILS # (AUTO) 11.1 (2.1-6.9); NEUTROPHILS % 74.7 % (38.7-80.0); PLATELET COUNT 192 x10e3/uL (140-360); RED BLOOD COUNT 4.77 x10e6/uL (4.3-5.7)
[2018-07-10 21:33] LABS: INR 0.92; PROTHROMBIN TIME 12.9 seconds (11.9-14.5)
[2018-07-10 21:34] LABS: PARTIAL THROMBOPLASTIN TIME 33.2 seconds (23.8-35.5)
[2018-07-10 21:48] LABS: ALANINE AMINOTRANSFERASE 21 IU/L (0-55); ALBUMIN 4.1 g/dL (3.5-5.0); ALBUMIN/GLOBULIN RATIO 0.9 (0.8-2.0); ALKALINE PHOSPHATASE 62 IU/L (40-150); ANION GAP 15.3 mmol/L (8-16); BLOOD UREA NITROGEN 15 mg/dL (7-26); BUN/CREATININE RATIO 17 (6-25); CALCIUM 10.3 mg/dL (8.4-10.2); CARBON DIOXIDE 28 mmol/L (22-29); CHLORIDE 97 mmol/L (98-107); CREATINE KINASE 127 IU/L (30-200); CREATININE, SERUM 0.89 mg/dL (0.72-1.25); EST GLOMERULAR FILTRATION RATE > 60 ML/MIN (60-); GLUCOSE 121 mg/dL (74-118); POTASSIUM 4.3 mmol/L (3.5-5.1); SODIUM 136 mmol/L (136-145)
[2018-07-10 21:52] LABS: B-TYPE NATRIURETIC PEPTIDE2 48.6 pg/mL (0-100)
[2018-07-10] MEDS ORDERED: IBUPROFEN 600 MG TAB PO STA (22:25)
[2018-07-10] MEDS ORDERED: METOCLOPRAMIDE10 MG PO (22:28)
[2018-07-10] MEDS ORDERED: METOPROLOL SUCC25 MG PO (22:28)
[2018-07-10] MEDS ORDERED: CLOPIDOGREL75 MG PO (22:28)
[2018-07-10] MEDS ORDERED: AMLODIPINE BESY10 MG PO (22:28)
[2018-07-10] MEDS ORDERED: ATORVASTATIN CA80 MG PO (22:28)
[2018-07-10] MEDS ORDERED: HYDRALAZINE HCL10 MG PO (22:28)
[2018-07-10] MEDS ORDERED: IBUPROFEN 400 MG TAB ONE (22:33)
--- NOTE | 2018-07-10 22:37 | NUR ---
dr simpson aware of vs, medicated per orders. pt awake alert skin w/d resp nonlab. nad noted.
[2018-07-10] MEDS ORDERED: VANCOMYCIN 1GM/NS 250 ML 250 ML IV STA (22:53)
[2018-07-10] MEDS ORDERED: PIPER-TAZ 3.375 GM 50 ML IV STA (22:53)
[2018-07-10 23:25] LABS: CLARITY,URINE CLEAR (CLEAR); COLOR,URINE YELLOW (YELLOW)
[2018-07-10 23:26] LABS: BILIRUBIN,URINE NEGATIVE (NEGATIVE); KETONES,URINE NEGATIVE (NEGATIVE); LEUKOCYTE ESTERASE ,URINE NEGATIVE (NEGATIVE); NITRITE,URINE NEGATIVE (NEGATIVE); PROTEIN,URINE DIPSTICK NEGATIVE (NEGATIVE); URINE UROBILINOGEN 1 mg/dL (0.2 - 1)
[2018-07-10 23:37] LABS: BACTERIA,URINE RARE /HPF; EPITHELIAL CELLS,URINE RARE /LPF; RBC,URINE >50 /HPF (0-5); WBC,URINE (MAN) 0-5 /HPF (0-5)
--- NOTE | 2018-07-11 00:10 | NUR ---
pt reports feels better after medications, awake alert skin w/d resp nonlab. nad noted. family at bedside
[2018-07-11] MEDS ORDERED: IBUPROFEN 400 MG TAB PO PRN (00:15)
[2018-07-11 01:54] LABS: FREE THYROXINE INDEX 2.662 (1.4-3.8); THYROID STIMULATING HORMONE 1.021 uIU/mL (0.350-4.940)
[2018-07-11] MEDS: ALBUTEROL SULF 0.083% NEB SOLN 3 ML NEB NEB SCH ×7 (02:58→23:00)
[2018-07-11] MEDS: SODIUM CHLORIDE 0.9% 1000ML 1,000 ML IV SCH ×4 (03:40→22:13)
[2018-07-11] MEDS: PIPER-TAZ 3.375 GM 50 ML IV SCH ×3 (05:57→18:00)
[2018-07-11] MEDS: IPRATROPIUM BROMIDE 0.02% 2.5 ML NEB NEB SCH ×3 (06:51→19:55)
--- NOTE | 2018-07-11 07:00 | NUR ---
REPORT TO FELIBERTO BENAVIDEZ
--- NOTE | 2018-07-11 09:08 | NUR ---
PER DR Nash WANG ORDER TYLENOL #3 1 TAB PO Q6H PRN PAIN
[2018-07-11] MEDS: ACETAMINOPHEN/CODEINE 300MG - 30MG TAB PO PRN ×2 (09:25→22:15)
[2018-07-11] MEDS: VANCOMYCIN HCL 1GM/NS 250 ML BAG IV SCH ×2 (11:06→22:13)
[2018-07-11] MEDS ORDERED: ONDANSETRON HCL INJ 2MG/ML 2ML 2 MG/ML VIAL IV PRN (11:30)
--- NOTE | 2018-07-11 12:05 | NUR ---
Received patient via wheelchair from ER. Accompanied by and daughter. AAOX4 to time, person, place, situation. Respirations even and unlabored. Oriented patient and family to room. Instructed to use call light for assistance. Voiced understanding.
[2018-07-11 12:10] VITALS: BP 141/65
[2018-07-11 12:30] VITALS: BP 141/65
[2018-07-11 12:54] VITALS: BP 141/65
--- NOTE | 2018-07-11 14:00 | NUR ---
paged to notify of admission and review medications. Awaiting for call back
[2018-07-11 16:44] VITALS: BP 123/58
--- NOTE | 2018-07-11 18:00 | NUR ---
Patient aware of sputum culture order. States "Right now I don't have productive cough"
--- NOTE | 2018-07-11 18:40 | NUR ---
Repaged to review home medications. Awaiting for call back
--- NOTE | 2018-07-11 18:48 | NUR ---
Resting in bed, at bedside. No s/s of acute distress noted. Report to be given to oncoming nurse.
--- NOTE | 2018-07-11 19:05 | NUR ---
Patient visited in room during nursing rounds. Patient alert and oriented x3. [place] speaking and understand little citizen of [place]. Patient ambulatory in room prn. Family at bedside visiting. Patient on IVF (NS @ 125ml/hr) and scheduled IV antibiotics. Call douglass within reach. Will monitor pt closely.
[2018-07-11 20:00] VITALS: BP 143/65
[2018-07-11] MEDS: ATORVASTATIN 40 MG TAB PO SCH (20:40)
[2018-07-11] MEDS: HYDRALAZINE HCL 10 MG TAB PO SCH (20:43)
[2018-07-11] MEDS ORDERED: NON-FORMULARY MEDICATION (Atorvastatin Calcium 80 MG) PO SCH (21:00)
[2018-07-11] MEDS ORDERED: NON-FORMULARY MEDICATION (Famotidine (Pepcid) 40 MG) PO SCH (21:00)
[2018-07-12] VITALS (8 sets, daily range): BP systolic 117–150; BP diastolic 56–69
[2018-07-12] MEDS: ALBUTEROL SULF 0.083% NEB SOLN 3 ML NEB NEB SCH ×6 (00:22→19:10)
[2018-07-12] MEDS: PIPER-TAZ 3.375 GM 50 ML IV SCH ×4 (00:45→18:40)
[2018-07-12] MEDS: IPRATROPIUM BROMIDE 0.02% 2.5 ML NEB NEB SCH ×4 (01:00→19:10)
[2018-07-12 05:59] LABS: BASOPHILS # (AUTO) 0.1 (0.0-0.1); BASOPHILS % 0.5 % (0.0-1.0); EOSINOPHILS # (AUTO) 0.3 (0.0-0.4); EOSINOPHILS % 2.6 % (0.0-6.0); HEMATOCRIT 35.2 % (38.2-49.6); HEMOGLOBIN 11.5 g/dL (14.0-18.0); LYMPHOCYTES % 27.5 % (18.0-39.1); MEAN CORPUSCULAR HEMOGLOBIN 30.7 pg (28-32); MEAN CORPUSCULAR HGB CONC 32.7 g/dL (31-35); MONOCYTES # (AUTO) 1.4 (0.2-0.8); MONOCYTES % 12.6 % (4.4-11.3); NEUTROPHILS # (AUTO) 6.2 (2.1-6.9); NEUTROPHILS % 56.4 % (38.7-80.0); PLATELET COUNT 143 x10e3/uL (140-360); RED BLOOD COUNT 3.74 x10e6/uL (4.3-5.7); RED CELL DISTRIBUTION WIDTH 14.2 % (11.7-14.4)
[2018-07-12 06:03] LABS: MEAN CORPUSCULAR VOLUME 94.1 fL (81-99)
[2018-07-12] MEDS: FAMOTIDINE 20 MG TAB PO SCH ×4 (06:17→21:31)
[2018-07-12] MEDS: HYDRALAZINE HCL 10 MG TAB PO SCH ×3 (06:17→21:32)
[2018-07-12 06:28] LABS: ANION GAP 9.8 mmol/L (8-16); BLOOD UREA NITROGEN 11 mg/dL (7-26); BUN/CREATININE RATIO 15 (6-25); CALCIUM 8.6 mg/dL (8.4-10.2); CARBON DIOXIDE 27 mmol/L (22-29); CHLORIDE 103 mmol/L (98-107); CREATININE, SERUM 0.74 mg/dL (0.72-1.25); EST GLOMERULAR FILTRATION RATE > 60 ML/MIN (60-); GLUCOSE 100 mg/dL (74-118); POTASSIUM 3.8 mmol/L (3.5-5.1); SODIUM 136 mmol/L (136-145)
--- NOTE | 2018-07-12 06:42 | Diagnostic Imaging Report ---
EXAMINATION: CHEST SINGLE (PORTABLE) INDICATION: PNEUMONIA COMPARISON: Chest x-ray 07/10/2018 FINDINGS: AP view TUBES and LINES: None. LUNGS: Lungs are well inflated. There are bibasilar atelectasis. There is perihilar interstitial opacities, consistent with interstitial edema. PLEURA: No pleural effusion or pneumothorax. HEART AND MEDIASTINUM: Cardiac size is moderately enlarged. There are atherosclerotic calcifications within the aorta. BONES AND SOFT TISSUES: No acute osseous lesion. Soft tissues are unremarkable. UPPER ABDOMEN: No free air under the diaphragm. IMPRESSION: Stable interstitial edema. Signed by: DR. Naseem Orozco MD on 07/12/2018 6:39 AM
--- NOTE | 2018-07-12 07:05 | NUR ---
Received patient mid fowlers position, side rails upx2, call light within reach, and daughter at bedside. Resting with eyes closed. Arousable to verbal stimuli. Respirations even and unlabored. Will continue to monitor.
[2018-07-12] MEDS: METOCLOPRAMIDE HCL 10 MG TAB PO SCH ×2 (08:47→16:57)
[2018-07-12] MEDS: SODIUM CHLORIDE 0.9% 1000ML 1,000 ML IV SCH ×2 (08:47→16:57)
[2018-07-12] MEDS: CLOPIDOGREL BISULFATE 75 MG TAB PO SCH (08:47)
[2018-07-12] MEDS: TRIAMTERENE/HCTZ 37.5-25 MG TAB PO SCH (08:47)
[2018-07-12] MEDS: AMLODIPINE BESYLATE 10 MG TAB PO SCH (08:47)
[2018-07-12] MEDS: VANCOMYCIN HCL 1GM/NS 250 ML BAG IV SCH ×2 (12:00→22:44)
--- NOTE | 2018-07-12 19:05 | NUR ---
Patient visited in room during nursing rounds. Patient alert and oriented x3. [place] speaking and understand little bhutanese. Patient ambulatory in room prn. Family at bedside visiting. Patient on IVF (NS @ 125ml/hr) and scheduled IV antibiotics. Call douglass within reach. Will monitor pt closely.
--- NOTE | 2018-07-12 19:19 | NUR ---
Report given to oncoming nurse of patient's status. NO s/s of acute distress noted.
--- NOTE | 2018-07-12 19:58 | NUR ---
Called and spoke with Dr. Solis (cardio) regarding pt being on IVF (NS at 125ml/hr) and at same time with possible CHF condition. Dr. Solis ordered to discontinue IVF.
[2018-07-12] MEDS: ATORVASTATIN 40 MG TAB PO SCH (21:31)
[2018-07-13] MEDS: IPRATROPIUM BROMIDE 0.02% 2.5 ML NEB NEB SCH ×2 (00:22→06:28)
[2018-07-13] MEDS: PIPER-TAZ 3.375 GM 50 ML IV SCH ×2 (00:47→06:24)
[2018-07-13 01:33] VITALS: BP 153/71
[2018-07-13] MEDS: ACETAMINOPHEN/CODEINE 300MG - 30MG TAB PO PRN (02:50)
[2018-07-13 04:00] VITALS: BP 150/69
--- NOTE | 2018-07-13 04:14 | Consultation ---
DATE OF CONSULTATION: 07/12/2018 Cardiology Consultation REFERRING PHYSICIAN: Gracy Jason M.D., Internal Medicine CONSULTING PHYSICIAN: Leon Hughes MD, Interventional Cardiology REASON FOR CONSULTATION: Management of cardiovascular disease. HISTORY OF PRESENT ILLNESS: Mr. Ike Taylor is a pleasant 68-year-old man with a history of hypertension, recent stroke, dyslipidemia, morbid obesity, who presents to [facility] following an event of altered mental status in the setting of febrile illness of unclear etiology. He was admitted and after cultures were drawn, initiated on vancomycin and Zosyn. He was also hydrated. Today, he has resolved a confusion spell according to the patient as well as family members. He denies any chest pain or shortness of breath. He does elicit some coughing with green productive sputum. He denies any dysuria, abdominal discomfort, nausea, vomiting, or diarrhea. He denies any new episodes of weakness, numbness, changes in speech, vision, or gait. REVIEW OF SYSTEMS: A 12 systems review is negative, except for as noted above. ALLERGIES: NO KNOWN DRUG ALLERGIES. PAST MEDICAL HISTORY: As per HPI. SOCIAL HISTORY: No active smoking, alcohol, or drugs. FAMILY HISTORY: Noncontributory. PHYSICAL EXAMINATION: GENERAL: No acute distress. Alert and active. NECK: No JVD. No carotid bruits. CHEST: Clear to auscultation. CARDIOVASCULAR: Regular rate and rhythm. Normal S1 and S2. No S3 or S4. Systolic ejection murmur 1/6. ABDOMEN: Soft, nontender. EXTREMITIES: No edema. Warm distal extremities. CARDIOVASCULAR MEDICATIONS: Reviewed. Amlodipine 10 mg daily, clopidogrel 75 mg daily, atorvastatin 80 mg at bedtime, hydralazine 10 mg q.8 hours. LABORATORY DATA: Studies reviewed. Sodium 136, potassium 3.8, chloride 103, bicarbonate 27, hemoglobin 11.5, platelets 143. INR 0.9. AST 22, ALT 21, alkaline phosphatase 62, total bilirubin 0.8. ASSESSMENT: 1. Febrile illness of unclear etiology, possible acute respiratory illness. 2. Confusion/delirium, improved in the setting of recent cerebrovascular accident. 3. Hypertension. 4. Dyslipidemia. 5. Morbid obesity. RECOMMENDATIONS: 1. Agree with current cardiovascular medications. We recently adjusted antihypertensives in office. We will adjust further according to readings while in-house. 2. Continue high potency statin therapy in light of a recent stroke in addition to the Clopidogrel. 3. Await cultures- on broad-spectrum coverage for now, await results. Thank you, Dr. Jason, for the opportunity to participate in the care of Mr. Taylor. MD LANIE Brown/ALEA /[id number] MTDD
[2018-07-13 05:12] LABS: BASOPHILS # (AUTO) 0.1 (0.0-0.1); BASOPHILS % 0.5 % (0.0-1.0); EOSINOPHILS # (AUTO) 0.4 (0.0-0.4); EOSINOPHILS % 3.5 % (0.0-6.0); HEMATOCRIT 37.2 % (38.2-49.6); HEMOGLOBIN 12.1 g/dL (14.0-18.0); LYMPHOCYTES # (AUTO) 2.7 (1.0-3.2); MEAN CORPUSCULAR HEMOGLOBIN 30.2 pg (28-32); MEAN CORPUSCULAR HGB CONC 32.5 g/dL (31-35); MEAN CORPUSCULAR VOLUME 92.8 fL (81-99); MONOCYTES % 9.6 % (4.4-11.3); NEUTROPHILS # (AUTO) 5.9 (2.1-6.9); NEUTROPHILS % 59.1 % (38.7-80.0); PLATELET COUNT 178 x10e3/uL (140-360); RED BLOOD COUNT 4.01 x10e6/uL (4.3-5.7)
[2018-07-13 05:43] LABS: ANION GAP 12.8 mmol/L (8-16); BLOOD UREA NITROGEN 9 mg/dL (7-26); BUN/CREATININE RATIO 12 (6-25); CALCIUM 9.1 mg/dL (8.4-10.2); CARBON DIOXIDE 26 mmol/L (22-29); CHLORIDE 104 mmol/L (98-107); CREATININE, SERUM 0.73 mg/dL (0.72-1.25); EST GLOMERULAR FILTRATION RATE > 60 ML/MIN (60-); GLUCOSE 94 mg/dL (74-118); POTASSIUM 3.8 mmol/L (3.5-5.1); SODIUM 139 mmol/L (136-145)
[2018-07-13] MEDS: HYDRALAZINE HCL 10 MG TAB PO SCH (06:24)
[2018-07-13] MEDS: ALBUTEROL SULF 0.083% NEB SOLN 3 ML NEB NEB SCH ×2 (06:28→11:00)
--- NOTE | 2018-07-13 07:12 | NUR ---
Patient is resting in bed in NAD. He denies any pain or SOB at this time. Spouse and daughter at the bedside. POC discussed. Patient and family instructed to call for assistance as needed and verbalized understanding. Bed in lowest position, locked and call douglass within reach.
[2018-07-13 08:00] VITALS: BP 150/69
[2018-07-13 08:18] VITALS: BP 127/61
[2018-07-13 08:19] VITALS: BP 137/60
[2018-07-13] MEDS ORDERED: IBUPROFEN 400 MG TAB PO PRN (09:00)
--- NOTE | 2018-07-13 09:12 | NUR ---
IMM letter delivered and explained to pt and his family at bedside. They verbalized understanding. Signed copy placed in chart. [place] copy provided to pt.
[2018-07-13] MEDS: TRIAMTERENE/HCTZ 37.5-25 MG TAB PO SCH (09:18)
[2018-07-13] MEDS: CLOPIDOGREL BISULFATE 75 MG TAB PO SCH (09:19)
[2018-07-13] MEDS: AMLODIPINE BESYLATE 10 MG TAB PO SCH (09:19)
[2018-07-13] MEDS: FAMOTIDINE 20 MG TAB PO SCH (09:19)
[2018-07-13] MEDS: METOCLOPRAMIDE HCL 10 MG TAB PO SCH (09:19)
[2018-07-13 12:03] VITALS: BP 135/64
--- NOTE | 2018-07-13 12:21 | NUR ---
Status changed to observation. Spoke to pt and family at bedside. Explained status change. They verbalized understanding. QUEZADA letter signed and filed in chart. Copy to pt.
[2018-07-13] MEDS ORDERED: LEVAQUIN500 MG PO (12:46)
--- NOTE | 2018-07-13 13:50 | NUR ---
Patient discharged home with written instructions and prescription. Patient, spouse and daughter verbalized understanding. IV dc'd, cath intact and small dressing applied.
--- NOTE | 2018-07-14 13:20 | Progress Note ---
DATE: 07/13/2018 Cardiology Progress Note SUBJECTIVE: Again, had episodes of confusion overnight, which he attributes to the use of inhaler- albuterol, which he has related to these episodes of confusion. Denies chest pain or shortness of breath. Has otherwise no new complaints. OBJECTIVE: VITAL SIGNS: Temperature 97.6, heart rate 63, blood pressure 137/60, respiratory rate 20, O2 saturation 96%. GENERAL: No acute distress, alert. NECK: No JVD. CHEST: Clear to auscultation. CARDIOVASCULAR: Regular rate and rhythm. Normal S1 and S2. No S3, no S4. ABDOMEN: Soft. EXTREMITIES: Trace edema. MEDICATIONS: Cardiovascular medications reviewed. Clopidogrel 75 mg daily, atorvastatin 80 mg at bedtime, triamterene/hydrochlorothiazide 37.5/25 daily. LABORATORY DATA: Sodium 139, potassium 3.8, chloride 104, bicarbonate 26, BUN 9, creatinine 0.7, glucose 94. White blood cells 9.9, hemoglobin 12.1, platelets 178. INR 3.9. AST 22, ALT 21. ASSESSMENT: 1. Recent cerebrovascular accident. 2. Episodes of bradycardia while on beta-asa, currently resolved following beta-asa discontinuation. 3. Hypertension. 4. Dyslipidemia. 5. Fever of unclear etiology, undergoing workup and broad-spectrum antibiotic coverage with vancomycin and Zosyn. 6. Episodes of delirium. RECOMMENDATIONS: 1. Continue current cardiovascular medications. 2. Continue telemetry monitoring while in-house. 3. Await culture results. MD LANIE Brown/ALEA /[id number] MTDD
== END 2018-07-13 13:50 | disposition home or self-care (01) ==
LOC: ER 18:32 → INTOOBSV 07-11 00:13 → ERHOLD 07-11 00:13 → MED/SURG2 07-11 12:35
DX: A41.9 Sepsis, unspecified organism (principal); J20.9 Acute bronchitis, unspecified; I10 Essential (primary) hypertension; E78.5 Hyperlipidemia, unspecified; E66.01 Morbid (severe) obesity due to excess calories; Z68.30 Body mass index [BMI] 30.0-30.9, adult; I69.318 Other symptoms and signs involving cognitive functions following cerebral infarction
CPT/HCPCS: 36415 ×4; 70450; 71045 ×2; 80048 ×2; 80053; 80202; 81001; 82140; 82550; 82553; 83605; 83735; 83880; 84436; 84443; 84479; 84484; 85025 ×3; 85610; 85730; 87040; 87070; 87086; 87205; 87400; 93005; 94640 ×6; 99284; G0378 ×3; J2405; J2543 ×4; J3370 ×3; J7030 ×2; J8597 ×2

== ENCOUNTER → 2019-07-16 | Outpatient (CLI) | payer MEDICARE ==
[~2019-07-16] MED LIST changes: +AMLODIPINE BESY10 MG PO; +ATORVASTATIN CA80 MG PO; +CLOPIDOGREL75 MG PO; +HYDRALAZINE HCL10 MG PO; +LEVAQUIN500 MG PO; +METOCLOPRAMIDE10 MG PO
--- NOTE | 2019-07-16 13:11 | Diagnostic Imaging Report ---
EXAM: CHEST 2 VIEWS DATE: 07/16/2019 12:40 PM INDICATION: Wheezing COMPARISON: 07/12/2018 FINDINGS: Implanted cardiac monitoring devices noted overlying the medial left hemithorax. The trachea is midline. There are mildly increased interstitial markings present bilaterally. The lungs are otherwise symmetrically expanded without evidence for large focal consolidation, pneumothorax, or significant pleural effusion. The cardiomediastinal silhouette is stable in appearance. Atherosclerotic calcifications are noted within the thoracic aorta. No acute osseous abnormality is identified. IMPRESSION: Nonspecific mildly increased interstitial markings. Findings can be seen in setting of edema or an atypical infectious/inflammatory process. No evidence for focal consolidation. Signed by: Dr. Silas Ordonez MD on 07/16/2019 1:08 PM
== END ==
LOC: RAD 12:19
PROVIDERS: ATTEND Family Medicine
DX: R06.2 Wheezing (principal)
CPT/HCPCS: 71046

== ENCOUNTER 2020-06-15 21:25 | Observation (INO) | payer MEDICARE ==
[~2020-06-15] VITALS: Ht 182.9 cm; Wt 111.1 kg
[2020-06-15] MEDS ORDERED: ONDANSETRON HCL INJ 2MG/ML 2ML 2 MG/ML VIAL IV STA (21:49)
[2020-06-15] MEDS ORDERED: PANTOPRAZOLE 40 MG 10ML VIAL IV STA (21:49)
[2020-06-15 22:03] LABS: BASOPHILS # (AUTO) 0.1 (0.0-0.1); BASOPHILS % 0.6 % (0.0-1.0); EOSINOPHILS # (AUTO) 0.2 (0.0-0.4); HEMATOCRIT 45.9 % (38.2-49.6); HEMOGLOBIN 14.9 g/dL (14.0-18.0); LYMPHOCYTES # (AUTO) 2.2 (1.0-3.2); LYMPHOCYTES % 22.3 % (18.0-39.1); MEAN CORPUSCULAR HEMOGLOBIN 30.4 pg (28-32); MEAN CORPUSCULAR HGB CONC 32.5 g/dL (31-35); MEAN CORPUSCULAR VOLUME 93.7 fL (81-99); MONOCYTES # (AUTO) 0.9 (0.2-0.8); NEUTROPHILS # (AUTO) 6.6 (2.1-6.9); NEUTROPHILS % 65.6 % (38.7-80.0); PLATELET COUNT 217 x10e3/uL (140-360); RED CELL DISTRIBUTION WIDTH 14.6 % (11.7-14.4)
[2020-06-15 22:27] LABS: AMYLASE 46 U/L (25-125); LIPASE 12 U/L (8-78)
[2020-06-15 22:30] LABS: ALANINE AMINOTRANSFERASE 26 IU/L (0-55); ALBUMIN 4.2 g/dL (3.5-5.0); ALBUMIN/GLOBULIN RATIO 1.1 (0.8-2.0); ALKALINE PHOSPHATASE 58 IU/L (40-150); ANION GAP 16.4 mmol/L (8-16); BLOOD UREA NITROGEN 12 mg/dL (7-26); BUN/CREATININE RATIO 13 (6-25); CALCIUM 8.8 mg/dL (8.4-10.2); CARBON DIOXIDE 23 mmol/L (22-29); CHLORIDE 104 mmol/L (98-107); CREATINE KINASE 282 IU/L (30-200); CREATININE, SERUM 0.89 mg/dL (0.72-1.25); EST GLOMERULAR FILTRATION RATE > 60 ML/MIN (60-); GLUCOSE 111 mg/dL (74-118); POTASSIUM 3.4 mmol/L (3.5-5.1); SODIUM 140 mmol/L (136-145)
[2020-06-16] VITALS (11 sets, daily range): BP systolic 98–140; BP diastolic 51–82
[2020-06-16 00:59] LABS: CREATINE KINASE MB 5.6 ng/mL (0-5.0)
[2020-06-16] MEDS ORDERED: ENOXAPARIN INJ 80 MG/0.8 ML SYR SC STA (01:16)
[2020-06-16] MEDS ORDERED: ONDANSETRON HCL INJ 2MG/ML 2ML 2 MG/ML VIAL IV PRN (01:30)
[2020-06-16] MEDS ORDERED: NITROGLYCERIN 0.4 MG SUBL SL PRN (01:30)
[2020-06-16] MEDS ORDERED: SODIUM CHLORIDE FLUSH 10 ML SYR INJ PRN (01:30)
[2020-06-16] MEDS ORDERED: MORPHINE SULFATE INJ 2 MG/ML SYR IV PRN (01:30)
[2020-06-16] MEDS ORDERED: ENOXAPARIN INJ 80 MG/0.8 ML SYR SC ONE (01:37)
[2020-06-16] MEDS: ASPIRIN 81 MG ENTERIC COATED PO SCH (08:01)
[2020-06-16] MEDS ORDERED: FUROSEMIDE INJ 10 MG/ML 2 ML VIAL IV ONE (18:00)
[2020-06-16] MEDS ORDERED: ATORVASTATIN 40 MG TAB PO SCH (21:00)
[2020-06-16] MEDS ORDERED: NON-FORMULARY MEDICATION (Atorvastatin Calcium 80 MG) PO SCH (21:00)
[2020-06-16] MEDS: HYDRALAZINE HCL 10 MG TAB PO SCH (21:25)
[2020-06-17 04:54] VITALS: BP 120/60
[2020-06-17 05:57] LABS: BASOPHILS # (AUTO) 0.1 (0.0-0.1); BASOPHILS % 0.9 % (0.0-1.0); EOSINOPHILS # (AUTO) 0.4 (0.0-0.4); EOSINOPHILS % 4.9 % (0.0-6.0); HEMATOCRIT 40.2 % (38.2-49.6); HEMOGLOBIN 14.1 g/dL (14.0-18.0); LYMPHOCYTES # (AUTO) 2.4 (1.0-3.2); LYMPHOCYTES % 30.8 % (18.0-39.1); MEAN CORPUSCULAR HEMOGLOBIN 34.1 pg (28-32); MEAN CORPUSCULAR HGB CONC 35.1 g/dL (31-35); MEAN CORPUSCULAR VOLUME 97.1 fL (81-99); MONOCYTES # (AUTO) 0.8 (0.2-0.8); MONOCYTES % 10.7 % (4.4-11.3); NEUTROPHILS # (AUTO) 4.1 (2.1-6.9); NEUTROPHILS % 52.4 % (38.7-80.0); PLATELET COUNT 162 x10e3/uL (140-360); RED BLOOD COUNT 4.14 x10e6/uL (4.3-5.7); RED CELL DISTRIBUTION WIDTH 15.9 % (11.7-14.4)
[2020-06-17] MEDS: HYDRALAZINE HCL 10 MG TAB PO SCH (06:00)
[2020-06-17 06:34] LABS: ANION GAP 12.5 mmol/L (8-16); BLOOD UREA NITROGEN 14 mg/dL (7-26); BUN/CREATININE RATIO 19 (6-25); CALCIUM 8.6 mg/dL (8.4-10.2); CARBON DIOXIDE 26 mmol/L (22-29); CHLORIDE 106 mmol/L (98-107); CREATININE, SERUM 0.75 mg/dL (0.72-1.25); EST GLOMERULAR FILTRATION RATE > 60 ML/MIN (60-); GLUCOSE 90 mg/dL (74-118); POTASSIUM 3.5 mmol/L (3.5-5.1); SODIUM 141 mmol/L (136-145)
[2020-06-17 07:46] VITALS: BP 123/66
[2020-06-17 08:34] VITALS: BP 123/66
[2020-06-17] MEDS: ASPIRIN 81 MG ENTERIC COATED PO SCH (08:53)
[2020-06-17] MEDS ORDERED: CLOPIDOGREL BISULFATE 75 MG TAB PO SCH (09:00)
[2020-06-17] MEDS ORDERED: AMLODIPINE BESYLATE 5 MG TAB PO SCH (09:00)
[2020-06-17] MEDS ORDERED: TRIAMTERENE/HCTZ 37.5-25 MG TAB PO SCH (09:00)
[2020-06-17 11:13] VITALS: BP 134/71
[2020-06-17] MEDS ORDERED: POTASSIUM CHLORIDE 10MEQ EA PO ONE (12:45)
== END 2020-06-17 14:54 | disposition home or self-care (01) ==
LOC: ER 21:34 → ERHOLD 06-16 01:39 → MED/SURG2 06-16 02:17
DX: R07.89 Other chest pain (principal); I10 Essential (primary) hypertension; E78.5 Hyperlipidemia, unspecified; Z86.73 Personal history of transient ischemic attack (TIA), and cerebral infarction without residual deficits; J84.10 Pulmonary fibrosis, unspecified; Z68.32 Body mass index [BMI] 32.0-32.9, adult; E66.01 Morbid (severe) obesity due to excess calories; Z20.822 Contact with and (suspected) exposure to COVID-19
CPT/HCPCS: 36415 ×3; 71045; 80048; 80053; 80061; 82150; 82550 ×2; 82553 ×2; 82948; 83036; 83690; 84484 ×2; 85025 ×2; 93005; 93306; 99284; C9113; G0378 ×2; J1650; J2405; U0002; J1940

== ENCOUNTER 2021-08-05 19:10 | Inpatient (IN) | payer MEDICARE ==
[~2021-08-05] VITALS: Ht 210.8 cm; Wt 111.1 kg
[2021-08-05] MEDS ORDERED: ACETAMINOPHEN 325 MG TAB PO STA (19:28)
[2021-08-05] MEDS ORDERED: SODIUM CHLORIDE 0.9% 1000ML 1,000 ML IV STA (19:28)
[2021-08-05] MEDS ORDERED: PIPERACILLIN/TAZOBACTAM 3.375 GM in SODIUM CHLORIDE 0.9% 50ML 50 ML IV SCH (19:30)
[2021-08-05 19:57] LABS: HEMATOCRIT 44.9 % (38.2-49.6); HEMOGLOBIN 15.3 g/dL (14.0-18.0); MEAN CORPUSCULAR HEMOGLOBIN 31.1 pg (28-32); MEAN CORPUSCULAR HGB CONC 34.1 g/dL (31-35); MEAN CORPUSCULAR VOLUME 91.3 fL (81-99); PLATELET COUNT 229 x10e3/uL (140-360); RED BLOOD COUNT 4.92 x10e6/uL (4.3-5.7); RED CELL DISTRIBUTION WIDTH 14.6 % (11.7-14.4)
[2021-08-05 20:18] LABS: ALBUMIN 3.3 g/dL (3.5-5.0); ALBUMIN/GLOBULIN RATIO 0.7 (0.8-2.0); ANION GAP 16.7 mmol/L (8-16); CALCIUM 9.4 mg/dL (8.4-10.2); CREATININE, SERUM 1.04 mg/dL (0.72-1.25); POTASSIUM 3.7 mmol/L (3.5-5.1)
[2021-08-05 20:25] LABS: LYMPHOCYTES % (MANUAL) 12 % (19-48); MONOCYTES % (MANUAL) 15 % (3.4-9.0); NEUTROPHILS % (MANUAL) 72 % (40-74); PLATELET ESTIMATE ADEQUATE; PLATELET MORPHOLOGY COMMENT NORMAL; RBC MORPHOLOGY COMMENT NORMAL
[2021-08-05 20:27] LABS: CREATINE KINASE MB 2.7 ng/mL (0-5.0)
[2021-08-05] MEDS ORDERED: SODIUM CHLORIDE 0.9% 50ML 50 ML ONE (20:50)
[2021-08-05] MEDS ORDERED: IOPAMIDOL 370 MG/ML 200 ML INFUS..BTL INJ ONE (20:50)
[2021-08-05] MEDS ORDERED: FUROSEMIDE INJ 10 MG/ML 4 ML VIAL IV SCH (21:00)
[2021-08-05] MEDS ORDERED: METHYLPREDNISOLONE SOD SUCC 40 MG/ML VIAL 1ML IV SCH (21:30)
[2021-08-05] MEDS ORDERED: FAMOTIDINE 20 MG/2 ML VIAL IV STA (21:50)
[2021-08-05] MEDS ORDERED: ACETAMINOPHEN 325 MG TAB PO PRN (22:00)
[2021-08-05] MEDS ORDERED: ONDANSETRON HCL INJ 2MG/ML 2ML 2 MG/ML VIAL IV PRN (22:00)
[2021-08-05] MEDS: ALBUTEROL/IPRATROPIUM 3 ML NEB NEB SCH ×2 (22:20→23:10)
[2021-08-05] MEDS: CARVEDILOL 3.125 MG TAB PO SCH (23:20)
[2021-08-05] MEDS: AZITHROMYCIN 250 MG TAB PO SCH (23:20)
[2021-08-05] MEDS: BENZONATATE 100 MG CAP PO PRN (23:33)
[2021-08-06] VITALS (8 sets, daily range): BP systolic 128–136; BP diastolic 63–70
[2021-08-06] MEDS: ALBUTEROL/IPRATROPIUM 3 ML NEB NEB SCH ×4 (03:00→19:10)
[2021-08-06] MEDS ORDERED: SODIUM CHLORIDE 0.9% 250ML 250 ML ONE (05:29)
[2021-08-06] MEDS: PIPERACILLIN/TAZOBACTAM 3.375 GM in SODIUM CHLORIDE 0.9% 50ML 50 ML IV SCH ×3 (05:36→21:29)
[2021-08-06 05:55] LABS: BASOPHILS % 0.2 % (0.0-1.0); HEMATOCRIT 45.3 % (38.2-49.6); HEMOGLOBIN 15.1 g/dL (14.0-18.0); LYMPHOCYTES # (AUTO) 0.8 (1.0-3.2); LYMPHOCYTES % 8.4 % (18.0-39.1); MEAN CORPUSCULAR HEMOGLOBIN 30.4 pg (28-32); MEAN CORPUSCULAR HGB CONC 33.3 g/dL (31-35); MEAN CORPUSCULAR VOLUME 91.1 fL (81-99); MONOCYTES # (AUTO) 0.5 (0.2-0.8); MONOCYTES % 4.7 % (4.4-11.3); NEUTROPHILS # (AUTO) 8.7 (2.1-6.9); NEUTROPHILS % 86.1 % (38.7-80.0); PLATELET COUNT 218 x10e3/uL (140-360); RED BLOOD COUNT 4.97 x10e6/uL (4.3-5.7); RED CELL DISTRIBUTION WIDTH 14.5 % (11.7-14.4)
[2021-08-06 06:32] LABS: ALBUMIN/GLOBULIN RATIO 0.6 (0.8-2.0); ANION GAP 13.9 mmol/L (8-16); CALCIUM 9.5 mg/dL (8.4-10.2); CREATININE, SERUM 0.96 mg/dL (0.72-1.25); POTASSIUM 3.9 mmol/L (3.5-5.1)
[2021-08-06 06:56] LABS: CREATINE KINASE MB 4.3 ng/mL (0-5.0)
[2021-08-06] MEDS ORDERED: ENOXAPARIN SOD INJ 40 MG/0.4 ML SYR SC SCH (09:00)
[2021-08-06] MEDS ORDERED: AMLODIPINE BESYLATE 5 MG TAB PO SCH (09:00)
[2021-08-06] MEDS: CARVEDILOL 3.125 MG TAB PO SCH ×2 (09:29→20:45)
[2021-08-06] MEDS: ASPIRIN 81 MG CHEW TAB PO SCH (12:08)
[2021-08-06] MEDS: TRIAMTERENE/HCTZ 37.5-25 MG TAB PO SCH (12:08)
[2021-08-06] MEDS: ENOXAPARIN SOD INJ 40 MG/0.4 ML SYR SC SCH (17:00)
[2021-08-06] MEDS: METHYLPREDNISOLONE SOD SUCC 40 MG/ML VIAL 1ML IV SCH (20:43)
[2021-08-06] MEDS: AZITHROMYCIN 250 MG TAB PO SCH (20:45)
[2021-08-06] MEDS ORDERED: ATORVASTATIN 40 MG TAB PO SCH (21:00)
[2021-08-06] MEDS ORDERED: CALCIUM CARBONATE 500 MG CHEWABLE TABS PO PRN (22:15)
[2021-08-06] MEDS: SODIUM CHLORIDE 0.9% 1000ML 1,000 ML IV SCH (22:31)
[2021-08-06] MEDS: FAMOTIDINE 20 MG TAB PO SCH (22:31)
[2021-08-07 00:34] VITALS: BP 122/66
[2021-08-07] MEDS: PIPERACILLIN/TAZOBACTAM 3.375 GM in SODIUM CHLORIDE 0.9% 50ML 50 ML IV SCH ×3 (04:57→21:24)
[2021-08-07] MEDS: BENZONATATE 100 MG CAP PO PRN (05:02)
[2021-08-07 05:49] VITALS: BP 158/106
[2021-08-07] MEDS: ALBUTEROL/IPRATROPIUM 3 ML NEB NEB SCH ×4 (06:53→18:30)
[2021-08-07 07:03] LABS: BASOPHILS % 0.1 % (0.0-1.0); HEMATOCRIT 43.5 % (38.2-49.6); HEMOGLOBIN 14.6 g/dL (14.0-18.0); LYMPHOCYTES # (AUTO) 1.2 (1.0-3.2); LYMPHOCYTES % 10.8 % (18.0-39.1); MEAN CORPUSCULAR HEMOGLOBIN 30.9 pg (28-32); MEAN CORPUSCULAR HGB CONC 33.6 g/dL (31-35); MONOCYTES # (AUTO) 0.5 (0.2-0.8); MONOCYTES % 4.4 % (4.4-11.3); NEUTROPHILS # (AUTO) 9.1 (2.1-6.9); NEUTROPHILS % 84.1 % (38.7-80.0); PLATELET COUNT 241 x10e3/uL (140-360); RED BLOOD COUNT 4.73 x10e6/uL (4.3-5.7); RED CELL DISTRIBUTION WIDTH 14.7 % (11.7-14.4)
[2021-08-07 07:19] LABS: ANION GAP 13.1 mmol/L (8-16); CALCIUM 9.1 mg/dL (8.4-10.2); CREATININE, SERUM 0.97 mg/dL (0.72-1.25); POTASSIUM 4.1 mmol/L (3.5-5.1)
[2021-08-07] MEDS: FAMOTIDINE 20 MG TAB PO SCH ×2 (07:30→17:04)
[2021-08-07 07:42] LABS: CHOL/HDL RATIO 6.8 (3.9-4.7)
[2021-08-07 08:00] VITALS: BP 129/60
[2021-08-07 08:26] VITALS: BP 129/60
[2021-08-07] MEDS: ASPIRIN 81 MG CHEW TAB PO SCH (09:03)
[2021-08-07] MEDS: METHYLPREDNISOLONE SOD SUCC 40 MG/ML VIAL 1ML IV SCH ×2 (09:03→21:23)
[2021-08-07] MEDS: TRIAMTERENE/HCTZ 37.5-25 MG TAB PO SCH (09:04)
[2021-08-07] MEDS: CARVEDILOL 3.125 MG TAB PO SCH ×2 (09:04→21:23)
[2021-08-07 11:48] VITALS: BP 132/75
[2021-08-07] MEDS: GUAIFENESIN/CODEINE 5 ML LIQD PO PRN ×2 (12:00→21:24)
[2021-08-07] MEDS: ENOXAPARIN SOD INJ 40 MG/0.4 ML SYR SC SCH (17:04)
[2021-08-07 21:20] VITALS: BP 143/73
[2021-08-07] MEDS: SODIUM CHLORIDE 0.9% 1000ML 1,000 ML IV SCH (21:23)
[2021-08-07] MEDS: AZITHROMYCIN 250 MG TAB PO SCH (21:24)
[2021-08-08] VITALS (8 sets, daily range): BP systolic 123–157; BP diastolic 62–88
[2021-08-08] MEDS: PIPERACILLIN/TAZOBACTAM 3.375 GM in SODIUM CHLORIDE 0.9% 50ML 50 ML IV SCH ×3 (06:28→21:43)
[2021-08-08] MEDS: ALBUTEROL/IPRATROPIUM 3 ML NEB NEB SCH ×4 (06:43→19:07)
[2021-08-08 06:51] LABS: BASOPHILS % 0.3 % (0.0-1.0); HEMATOCRIT 46.4 % (38.2-49.6); HEMOGLOBIN 15.3 g/dL (14.0-18.0); LYMPHOCYTES # (AUTO) 1.5 (1.0-3.2); LYMPHOCYTES % 13.2 % (18.0-39.1); MEAN CORPUSCULAR HEMOGLOBIN 30.7 pg (28-32); MONOCYTES # (AUTO) 0.6 (0.2-0.8); MONOCYTES % 4.9 % (4.4-11.3); NEUTROPHILS # (AUTO) 9.2 (2.1-6.9); NEUTROPHILS % 80.8 % (38.7-80.0); PLATELET COUNT 257 x10e3/uL (140-360); RED BLOOD COUNT 4.99 x10e6/uL (4.3-5.7); RED CELL DISTRIBUTION WIDTH 15.3 % (11.7-14.4)
[2021-08-08 07:15] LABS: ALBUMIN 2.9 g/dL (3.5-5.0); ANION GAP 12.2 mmol/L (8-16); BILIRUBIN,DIRECT 0.3 mg/dL (0.0-0.5); CALCIUM 9.2 mg/dL (8.4-10.2); CREATININE, SERUM 0.84 mg/dL (0.72-1.25); POTASSIUM 4.2 mmol/L (3.5-5.1)
[2021-08-08] MEDS: FAMOTIDINE 20 MG TAB PO SCH ×2 (07:50→17:12)
[2021-08-08] MEDS: BENZONATATE 100 MG CAP PO PRN ×2 (08:10→21:43)
[2021-08-08] MEDS: ASPIRIN 81 MG CHEW TAB PO SCH (08:57)
[2021-08-08] MEDS: METHYLPREDNISOLONE SOD SUCC 40 MG/ML VIAL 1ML IV SCH ×2 (08:57→21:43)
[2021-08-08] MEDS: TRIAMTERENE/HCTZ 37.5-25 MG TAB PO SCH (08:58)
[2021-08-08] MEDS: CARVEDILOL 3.125 MG TAB PO SCH ×2 (08:58→21:43)
[2021-08-08] MEDS: ENOXAPARIN SOD INJ 40 MG/0.4 ML SYR SC SCH (17:12)
[2021-08-08] MEDS: AZITHROMYCIN 250 MG TAB PO SCH (21:43)
[2021-08-08] MEDS: GUAIFENESIN/CODEINE 5 ML LIQD PO PRN (21:43)
[2021-08-09 00:19] VITALS: BP 151/66
[2021-08-09] MEDS: GUAIFENESIN/CODEINE 5 ML LIQD PO PRN ×2 (02:00→07:21)
[2021-08-09] MEDS ORDERED: FLUOXETINE HCL20 M1 PO (04:45)
[2021-08-09] MEDS ORDERED: CARVEDILOL6.25 MG PO (04:45)
[2021-08-09] MEDS ORDERED: TRIAMTERENE-HC1 EAC1 PO (04:45)
[2021-08-09 05:00] VITALS: BP 152/71
[2021-08-09] MEDS: PIPERACILLIN/TAZOBACTAM 3.375 GM in SODIUM CHLORIDE 0.9% 50ML 50 ML IV SCH (05:58)
[2021-08-09 06:00] LABS: BASOPHILS % 0.3 % (0.0-1.0); HEMATOCRIT 46.3 % (38.2-49.6); HEMOGLOBIN 15.4 g/dL (14.0-18.0); LYMPHOCYTES # (AUTO) 1.6 (1.0-3.2); LYMPHOCYTES % 13.6 % (18.0-39.1); MEAN CORPUSCULAR HEMOGLOBIN 30.9 pg (28-32); MEAN CORPUSCULAR HGB CONC 33.3 g/dL (31-35); MEAN CORPUSCULAR VOLUME 92.8 fL (81-99); MONOCYTES # (AUTO) 0.6 (0.2-0.8); MONOCYTES % 4.8 % (4.4-11.3); NEUTROPHILS # (AUTO) 9.4 (2.1-6.9); NEUTROPHILS % 79.4 % (38.7-80.0); PLATELET COUNT 264 x10e3/uL (140-360); RED BLOOD COUNT 4.99 x10e6/uL (4.3-5.7); RED CELL DISTRIBUTION WIDTH 15.2 % (11.7-14.4)
[2021-08-09 06:21] LABS: ANION GAP 13.1 mmol/L (8-16); CALCIUM 9.3 mg/dL (8.4-10.2); CREATININE, SERUM 0.87 mg/dL (0.72-1.25); POTASSIUM 4.1 mmol/L (3.5-5.1)
[2021-08-09] MEDS: ALBUTEROL/IPRATROPIUM 3 ML NEB NEB SCH ×2 (06:55→11:10)
[2021-08-09] MEDS: BENZONATATE 100 MG CAP PO PRN (07:21)
[2021-08-09 08:09] VITALS: BP 155/80
[2021-08-09] MEDS: METHYLPREDNISOLONE SOD SUCC 40 MG/ML VIAL 1ML IV SCH (08:46)
[2021-08-09] MEDS: FAMOTIDINE 20 MG TAB PO SCH (08:47)
[2021-08-09] MEDS: CARVEDILOL 3.125 MG TAB PO SCH (08:47)
[2021-08-09] MEDS: ASPIRIN 81 MG CHEW TAB PO SCH (08:47)
[2021-08-09] MEDS: TRIAMTERENE/HCTZ 37.5-25 MG TAB PO SCH (08:48)
[2021-08-09] MEDS ORDERED: MEDROL4 M2 PO (09:14)
[2021-08-09] MEDS ORDERED: LEVOFLOXACIN250 MG PO (09:14)
[2021-08-09] MEDS ORDERED: ASPIRIN CHEW81 MG PO (09:14)
[2021-08-09] MEDS ORDERED: CARVEDILOL3.125 MG PO (09:14)
[2021-08-09] MEDS ORDERED: GUAIFEN-CODEINE5 ML PO (10:55)
[2021-08-09 11:22] VITALS: BP 156/78
[2021-08-09] MEDS ORDERED: ONDANSETRON HCL 4 MG ORAL DISINTEGRATING TAB PO PRN (12:30)
[2021-08-09] MEDS ORDERED: CARVEDILOL 3.125 MG TAB PO SCH (21:00)
== END 2021-08-09 12:25 | disposition home or self-care (01) | DRG 194 ==
LOC: ER 19:20 → ERHOLD 21:37 → MED/SURG3 23:51
PROVIDERS: ADMIT Internal Medicine; ATTEND Internal Medicine
DX: J18.9 Pneumonia, unspecified organism (principal); M62.82 Rhabdomyolysis; I50.32 Chronic diastolic (congestive) heart failure; I27.20 Pulmonary hypertension, unspecified; I71.2 Thoracic aortic aneurysm, without rupture; I10 Essential (primary) hypertension; J84.10 Pulmonary fibrosis, unspecified; I11.0 Hypertensive heart disease with heart failure; Z86.73 Personal history of transient ischemic attack (TIA), and cerebral infarction without residual deficits; R59.0 Localized enlarged lymph nodes; J22 Unspecified acute lower respiratory infection; Z20.822 Contact with and (suspected) exposure to COVID-19; I27.21 Secondary pulmonary arterial hypertension; J84.89 Other specified interstitial pulmonary diseases; E78.5 Hyperlipidemia, unspecified; H10.9 Unspecified conjunctivitis
CPT/HCPCS: 36415; 71045; 71260; 80048; 80053; 80061; 80076; 82550; 82553; 83605; 83880; 84484; 85007; 85025; 85027; 87040; 93005; 93306; 94640; 94799; 99284; J1650; J2543; J2920; J7030; J7050; Q9967; U0002

== ENCOUNTER → 2021-10-11 | Outpatient (CLI) | payer MEDICARE ==
[~2021-10-11] MED LIST changes: +ASPIRIN CHEW81 MG PO; +CARVEDILOL3.125 MG PO; +CARVEDILOL6.25 MG PO; +FLUOXETINE HCL20 M1 PO; +GUAIFEN-CODEINE5 ML PO; +LEVOFLOXACIN250 MG PO; +MEDROL4 M2 PO; +TRIAMTERENE-HC1 EAC1 PO
== END ==
LOC: RAD 11:23
PROVIDERS: ATTEND Internal Medicine Critical Care Medicine
DX: J84.9 Interstitial pulmonary disease, unspecified (principal)
CPT/HCPCS: 71046